=== PATIENT | male | born 1965 | race Caucasian/White ===

== ENCOUNTER 2017-03-13 21:08 | Inpatient (IN) ==
[2017-03-13 22:19] LABS: AGAP 11; ALBUMIN 4.8 g/dL (3.5-5.0); ALKALINE PHOSPHATASE 89 U/L (32-122); AMYLASE 81 U/L (20-200); BUN 14 mg/dL (8-22); CALCIUM 9.9 mg/dL (8.8-10.2); CHLORIDE 98 mmol/L (98-107); COSMO 275; GOT 14 U/L (10-34); GPT 17 U/L (10-44); LIPASE 54 U/L (13-60); POTASSIUM 4.6 mmol/L (3.5-5.1); SODIUM 136 mmol/L (136-145); TCO2 27 mmol/L (25-35); TOTAL PROTEIN 7.6 g/dL (6.3-8.3)
[2017-03-13 22:35] LABS: BASO% 0.1 % (0.0-0.8); HEMATOCRIT 45.5 % (42.0-52.0); HEMOGLOBIN 15.8 g/dL (14.0-18.0); IMM GRAN# 0.03 X1000 (0.0-0.04); IMM GRAN% 0.2 % (0.0-0.5); LYMPH# 1.06 X1000 (1.2-3.4); LYMPH% 7.8 % (20.5-51.1); MANUAL DIFF NEEDED? YES; MCH 30.4 PG (27-31); MCHC 34.7 g/dL (33-37); MCV 87.7 FL (81-99); MONO# 0.29 X1000 (0.11-0.59); MONO% 2.1 % (1.7-9.3); MPV 10.4 FL (7.4-10.4); NEUT% 89.8 % (42.2-75.2); PLT 289 X1000 (130-400); RBC 5.19 XMIL (4.7-6.1)
[2017-03-13 23:05] LABS: LYMPHS 5 % (21-51); MONO 4 % (1-9)
[2017-03-13] MEDS ORDERED: PEPCID IV ONE (23:11)
[2017-03-13] MEDS ORDERED: SODIUM CHLORIDE 0.9% INJ ONE (23:11)
[2017-03-13] MEDS ORDERED: NS 1,000 ML IV ONE (23:11)
[2017-03-13] MEDS ORDERED: ZOFRAN IV ONE ×2 (23:11→23:47)
[2017-03-13] MEDS ORDERED: MORPHINE IV ONE (23:11)
[2017-03-13 23:28] LABS: BILIRUBIN URINE NEGATIVE (NEGATIVE); BLOOD URINE 1+ (NEGATIVE); CLARITY CLEAR (CLEAR); COLOR YELLOW; GLUCOSE URINE NEGATIVE (NEGATIVE); LEUKOCYTES URINE NEGATIVE (NEGATIVE); NITRITE URINE NEGATIVE (NEGATIVE); PH URINE 6.5; PROTEIN URINE NEGATIVE (NEGATIVE); SP GRAVITY URINE 1.015; UROBILINOGEN URINE NORMAL
[2017-03-13 23:29] LABS: URINE RBC <10 /HPF (<10); URINE WBC <10 /HPF (<10)
[2017-03-13 23:30] LABS: URINE CULTURE PL NEEDED? YES; URINE EPITHELIAL CELLS <10 /HPF (<10); URINE SOURCE CLEAN CATCH
[2017-03-13] MEDS ORDERED: DILAUDID IV ONE (23:46)
[2017-03-13] MEDS ORDERED: DILAUDID ONE (23:47)
[2017-03-13] MEDS ORDERED: ZOFRAN ONE (23:47)
[2017-03-14] MEDS ORDERED: ZOSYN 4.5 GM in NS 100 ML IV ONE (00:37)
[2017-03-14] MEDS ORDERED: NS 1,000 ML IV ONE (00:38)
[2017-03-14] MEDS ORDERED: DILAUDID IV ONE (01:28)
[2017-03-14] MEDS ORDERED: ZOFRAN IV ONE (01:28)
[2017-03-14] MEDS ORDERED: HURRICAINE SPRAY (DOSE) ONE (01:41)
[2017-03-14] MEDS ORDERED: XYLOCAINE-MPF 2% ONE (01:57)
[2017-03-14] MEDS ORDERED: SODIUM CHLORIDE 0.9% 30 ML ONE (01:57)
[2017-03-14] MEDS ORDERED: QUELICIN (DOSE) ONE (01:57)
[2017-03-14] MEDS ORDERED: NORCURON ONE (01:57)
[2017-03-14] MEDS ORDERED: NEO-SYNEPHRINE ONE (01:57)
[2017-03-14] MEDS ORDERED: ROBINUL ONE ×2 (01:57→03:41)
[2017-03-14] MEDS ORDERED: FENTANYL ONE (02:06)
[2017-03-14] MEDS ORDERED: DIPRIVAN 1% ONE (02:06)
[2017-03-14] MEDS ORDERED: NEOSTIGMINE ONE (03:06)
[2017-03-14] MEDS ORDERED: ZOFRAN ONE (03:40)
[2017-03-14] MEDS ORDERED: DILAUDID ONE (03:43)
[2017-03-14] MEDS ORDERED: OFIRMEV 1000 MG/ISOTONIC SOLN 1,000 MG/100 ML BOTTLE ONE (03:49)
[2017-03-14 04:27] LABS: URINE MICRO REVIEW NEEDED? NO; URINE SOURCE CATH
[2017-03-14 04:32] LABS: BILIRUBIN URINE NEGATIVE (NEGATIVE); BLOOD URINE NEGATIVE (NEGATIVE); COLOR YELLOW; GLUCOSE URINE 500 mg/dL (NEGATIVE); LEUKOCYTES URINE NEGATIVE (NEGATIVE); NITRITE URINE NEGATIVE (NEGATIVE); PH URINE 6.5; PROTEIN URINE NEGATIVE (NEGATIVE); SP GRAVITY URINE 1.022; TURBIDITY URINE CLEAR (CLEAR); UR EPITHELIAL CELLS <10 /HPF (<10); URINE BACTERIA NEGATIVE /HPF; URINE RBC <10 /HPF (<10); URINE WBC <10 /HPF (<10); UROBILINOGEN URINE NORMAL (NORMAL)
[2017-03-14] MEDS ORDERED: MORPHINE PCA ONE (04:48)
[2017-03-14] MEDS ORDERED: LR 1,000 ML ONE (04:48)
[2017-03-14] MEDS ORDERED: ZOFRAN IV PRN (06:56)
--- NOTE | 2017-03-14 07:32 | Diag Imaging Result Doc PS360 ---
CT ABDOMEN/PELVIS W/O CONTRAST - 03/13/2017 INDICATION: RUQ pain TECHNIQUE: A CT dose reduction protocol was used. COMPARISON: None FINDINGS: There is moderate pneumoperitoneum. There is some wall thickening of the duodenal bulb with some surrounding inflammation. No drainable fluid collection. There is a tiny nonobstructing 1 mm right renal stone. No hydronephrosis or hydroureter. Normal appendix. There is diverticulosis of the colon. Urinary bladder, prostate, and rectum are normal. The lung bases are clear and the heart size is normal. There is some gas in the gluteus musculature of the right buttock consistent with an intramuscular injection. IMPRESSION: Pneumoperitoneum. Inflammation about the duodenal bulb. Concerning for perforated peptic ulcer disease. Electronically signed by Austyn Leone 03/14/2017 7:29 AM
--- NOTE | 2017-03-14 07:34 | Diag Imaging Result Doc PS360 ---
FLAT/UPRIGHT ABD/1 VIEW CHEST - 03/13/2017 INDICATION: abd pain TECHNIQUE: Three views COMPARISON: None FINDINGS: There is a tiny calcified granuloma in the right upper lobe. Otherwise the chest is clear. No bowel obstruction or free air is visible. However on the CT immediately following this, there was some trace pneumoperitoneum from perforated peptic ulcer disease. IMPRESSION: Trace pneumoperitoneum from peptic ulcer disease is not visible on this x-ray series. Easily visible on the following CT. Electronically signed by Austyn Leone 03/14/2017 7:31 AM
[2017-03-14] MEDS ORDERED: [UNRECOGNIZED DRUG - OTHER] IV ONE (08:00)
[2017-03-14] MEDS ORDERED: DIFLUCAN IV ONE (08:00)
[2017-03-14] MEDS ORDERED: PNEUMOVAX 23 IM ONE (08:06)
[2017-03-14] MEDS: ZOSYN 3.375 GM in NS 50 ML IV SCH ×3 (09:40→21:07)
[2017-03-14] MEDS: PERIDEX MT SCH ×2 (09:40→21:07)
[2017-03-14] MEDS: SODIUM CHLORIDE 0.9% INJ SCH ×2 (09:41→21:07)
[2017-03-14] MEDS: PROTONIX IV SCH ×2 (09:41→21:07)
[2017-03-14] MEDS: DIFLUCAN 400 MG/NS 400 MG/200 ML IVPB IV SCH ×2 (11:49→14:12)
[2017-03-14 12:28] LABS: AGAP 13; ALBUMIN 3.5 g/dL (3.5-5.0); ALKALINE PHOSPHATASE 56 U/L (32-122); BASO% 0.1 % (0.0-0.8); BUN 11 mg/dL (8-22); CALCIUM 8.5 mg/dL (8.8-10.2); CHLORIDE 101 mmol/L (98-107); COSMO 281; GOT 18 U/L (10-34); GPT 20 U/L (10-44); HEMOGLOBIN 13.9 g/dL (14.0-18.0); IMM GRAN# 0.03 X1000 (0.0-0.04); IMM GRAN% 0.2 % (0.0-0.5); LYMPH# 0.97 X1000 (1.2-3.4); LYMPH% 5.2 % (20.5-51.1); MAGNESIUM 1.5 mg/dL (1.5-2.7); MANUAL DIFF NEEDED? YES; MCH 30.8 PG (27-31); MCHC 34.8 g/dL (33-37); MCV 88.5 FL (81-99); MONO# 1.48 X1000 (0.11-0.59); MONO% 7.9 % (1.7-9.3); MPV 10.2 FL (7.4-10.4); NEUT% 86.6 % (42.2-75.2); PLT 251 X1000 (130-400); POTASSIUM 4.8 mmol/L (3.5-5.1); RBC 4.52 XMIL (4.7-6.1); SODIUM 140 mmol/L (136-145); TCO2 26 mmol/L (25-35); TOTAL BILIRUBIN 1.28 mg/dL (0.20-1.00); TOTAL PROTEIN 5.8 g/dL (6.3-8.3)
[2017-03-14 12:38] LABS: BANDS 10 % (0-1); LYMPHS 10 % (21-51); MONO 4 % (1-9)
[2017-03-14] MEDS ORDERED: VANCOMYCIN IV PER PHARMACY MISC SCH (13:45)
[2017-03-14] MEDS ORDERED: MAGNESIUM SULFATE 2 GM/S.W.I. 2 GM/50 ML IVPB IV ONE (14:00)
[2017-03-14] MEDS: NICODERM PATCH TD SCH (14:13)
[2017-03-14] MEDS ORDERED: VANCOMYCIN 2 GM in NS 500 ML IV ONE (15:00)
[2017-03-14] MEDS: DUONEB (A & A) INH SCH ×3 (15:30→23:53)
[2017-03-14] MEDS: HEPARIN SUBQ SCH (21:07)
[2017-03-14] MEDS: MORPHINE PCA IV PRN (21:22)
[2017-03-14] MEDS: LR 1,000 ML IV SCH (21:22)
[2017-03-15] MEDS: VANCOMYCIN 1.5 GM in NS 250 ML IV SCH ×3 (02:26→14:05)
[2017-03-15] MEDS: DUONEB (A & A) INH SCH ×6 (03:10→23:00)
[2017-03-15] MEDS: HEPARIN SUBQ SCH ×3 (04:09→21:55)
[2017-03-15] MEDS: ZOSYN 3.375 GM in NS 50 ML IV SCH ×4 (04:09→20:58)
[2017-03-15 05:58] LABS: HEMATOCRIT 38.5 % (42.0-52.0); HEMOGLOBIN 13.2 g/dL (14.0-18.0); MCH 31.6 PG (27-31); MCHC 34.3 g/dL (33-37); MCV 92.1 FL (81-99); MPV 11.3 FL (7.4-10.4); RBC 4.18 XMIL (4.7-6.1)
[2017-03-15 06:25] LABS: AGAP 9; ALBUMIN 3.2 g/dL (3.5-5.0); ALKALINE PHOSPHATASE 51 U/L (32-122); BUN 14 mg/dL (8-22); CALCIUM 8.9 mg/dL (8.8-10.2); CHLORIDE 96 mmol/L (98-107); COSMO 273; GOT 17 U/L (10-34); GPT 16 U/L (10-44); POTASSIUM 4.6 mmol/L (3.5-5.1); SODIUM 135 mmol/L (136-145); TCO2 30 mmol/L (25-35); TOTAL BILIRUBIN 0.68 mg/dL (0.20-1.00); TOTAL PROTEIN 5.8 g/dL (6.3-8.3)
[2017-03-15 06:30] LABS: HEMOGLOBIN A1C 5.4 % (4.8-6.0)
[2017-03-15] MEDS: LR 1,000 ML IV SCH ×3 (07:50→16:27)
[2017-03-15] MEDS: DIFLUCAN 400 MG/NS 400 MG/200 ML IVPB IV SCH (08:00)
[2017-03-15] MEDS: NICODERM PATCH TD SCH (08:01)
[2017-03-15] MEDS: PROTONIX IV SCH ×2 (08:01→20:57)
[2017-03-15] MEDS: SODIUM CHLORIDE 0.9% INJ SCH ×2 (08:01→20:57)
[2017-03-15] MEDS: PERIDEX MT SCH ×2 (08:01→20:57)
--- NOTE | 2017-03-15 09:49 | Diag Imaging Result Doc PS360 ---
FLAT/UPRIGHT ABD/1 VIEW CHEST - 03/15/2017 INDICATION: post surgery TECHNIQUE: Three views COMPARISON: 03/13/2017 FINDINGS: There is a nasogastric tube in good position in the distal stomach. Lung volumes are much lower. There are trace pleural effusions. No significant infiltrates in the lung bases. Heart size is normal. There is a surgical drain in the epigastrium. There are laparotomy skin kirk. There is very little bowel gas overall. No bowel obstruction or free air. IMPRESSION: No significant acute disease or complication. Electronically signed by Austyn Leone 03/15/2017 9:46 AM
[2017-03-15] MEDS: MORPHINE PCA IV PRN (17:11)
[2017-03-16] MEDS: ZOSYN 3.375 GM in NS 50 ML IV SCH ×5 (00:14→21:25)
[2017-03-16] MEDS: DUONEB (A & A) INH SCH ×6 (03:15→23:10)
[2017-03-16] MEDS: LR 1,000 ML IV SCH ×4 (04:17→21:25)
[2017-03-16] MEDS: VANCOMYCIN 1.5 GM in NS 250 ML IV SCH (04:18)
[2017-03-16] MEDS: HEPARIN SUBQ SCH ×3 (05:01→21:26)
[2017-03-16 06:19] LABS: HEMATOCRIT 36.9 % (42.0-52.0); HEMOGLOBIN 12.7 g/dL (14.0-18.0); MCH 31.4 PG (27-31); MCHC 34.4 g/dL (33-37); MCV 91.1 FL (81-99); MPV 10.9 FL (7.4-10.4); RBC 4.05 XMIL (4.7-6.1)
[2017-03-16 06:48] LABS: AGAP 12; ALBUMIN 3.1 g/dL (3.5-5.0); ALKALINE PHOSPHATASE 48 U/L (32-122); BUN 13 mg/dL (8-22); CHLORIDE 100 mmol/L (98-107); COSMO 277; GOT 15 U/L (10-34); GPT 13 U/L (10-44); POTASSIUM 3.9 mmol/L (3.5-5.1); SODIUM 139 mmol/L (136-145); TCO2 27 mmol/L (25-35); TOTAL BILIRUBIN 0.64 mg/dL (0.20-1.00); TOTAL PROTEIN 4.9 g/dL (6.3-8.3)
[2017-03-16] MEDS: SODIUM CHLORIDE 0.9% INJ SCH ×2 (08:46→21:25)
[2017-03-16] MEDS: DIFLUCAN 400 MG/NS 400 MG/200 ML IVPB IV SCH (08:46)
[2017-03-16] MEDS: PERIDEX MT SCH ×2 (08:46→21:25)
[2017-03-16] MEDS: NICODERM PATCH TD SCH (08:46)
[2017-03-16] MEDS: PROTONIX IV SCH ×2 (08:46→21:25)
[2017-03-16] MEDS: VANCOMYCIN IV SCH (17:11)
[2017-03-16] MEDS: NS IV SCH (17:11)
[2017-03-16] MEDS ORDERED: AYR NASAL SPRAY NAS PRN (21:34)
[2017-03-17] MEDS: DUONEB (A & A) INH SCH ×6 (03:10→23:27)
[2017-03-17] MEDS: NS IV SCH ×2 (03:28→19:49)
[2017-03-17] MEDS: LR 1,000 ML IV SCH ×2 (03:28→22:39)
[2017-03-17] MEDS: VANCOMYCIN IV SCH ×2 (03:28→19:49)
[2017-03-17] MEDS: ZOSYN 3.375 GM in NS 50 ML IV SCH ×4 (05:57→22:36)
[2017-03-17 06:05] LABS: HEMATOCRIT 36.3 % (42.0-52.0); HEMOGLOBIN 12.7 g/dL (14.0-18.0); MCH 31.4 PG (27-31); MCV 89.6 FL (81-99); MPV 10.5 FL (7.4-10.4); RBC 4.05 XMIL (4.7-6.1)
[2017-03-17 06:36] LABS: AGAP 17; ALKALINE PHOSPHATASE 55 U/L (32-122); BUN 13 mg/dL (8-22); CALCIUM 8.7 mg/dL (8.8-10.2); CHLORIDE 99 mmol/L (98-107); COSMO 279; GOT 16 U/L (10-34); GPT 16 U/L (10-44); POTASSIUM 3.9 mmol/L (3.5-5.1); SODIUM 140 mmol/L (136-145); TCO2 24 mmol/L (25-35); TOTAL PROTEIN 6.1 g/dL (6.3-8.3)
[2017-03-17] MEDS: HEPARIN SUBQ SCH ×3 (06:43→22:36)
[2017-03-17] MEDS: PROTONIX IV SCH ×2 (08:32→22:36)
[2017-03-17] MEDS: DIFLUCAN 400 MG/NS 400 MG/200 ML IVPB IV SCH (08:32)
[2017-03-17] MEDS: SODIUM CHLORIDE 0.9% INJ SCH ×2 (08:32→22:36)
[2017-03-17] MEDS: NICODERM PATCH TD SCH (08:33)
[2017-03-17] MEDS: PERIDEX MT SCH ×2 (08:33→22:36)
[2017-03-18] MEDS: DUONEB (A & A) INH SCH ×6 (03:30→22:30)
[2017-03-18] MEDS: HEPARIN SUBQ SCH ×3 (04:29→21:09)
[2017-03-18] MEDS: ZOSYN 3.375 GM in NS 50 ML IV SCH (04:30)
[2017-03-18] MEDS: LR 1,000 ML IV SCH ×3 (04:38→17:59)
[2017-03-18] MEDS ORDERED: ULTRAM PO PRN (05:41)
[2017-03-18 06:09] LABS: HEMATOCRIT 37.3 % (42.0-52.0); HEMOGLOBIN 12.9 g/dL (14.0-18.0); MCHC 34.6 g/dL (33-37); MCV 89.7 FL (81-99); MPV 10.3 FL (7.4-10.4); RBC 4.16 XMIL (4.7-6.1)
[2017-03-18 06:29] LABS: AGAP 16; BUN 13 mg/dL (8-22); CALCIUM 8.6 mg/dL (8.8-10.2); CHLORIDE 99 mmol/L (98-107); COSMO 272; POTASSIUM 3.9 mmol/L (3.5-5.1); SODIUM 136 mmol/L (136-145); TCO2 21 mmol/L (25-35)
[2017-03-18] MEDS: NICODERM PATCH TD SCH (09:18)
[2017-03-18] MEDS: AUGMENTIN PO SCH ×2 (09:19→21:09)
[2017-03-18] MEDS: PROTONIX PO SCH ×2 (09:19→21:09)
[2017-03-18] MEDS: PERIDEX MT SCH ×2 (09:19→21:09)
[2017-03-18] MEDS: DIFLUCAN 400 MG/NS 400 MG/200 ML IVPB IV SCH (09:19)
[2017-03-18] MEDS ORDERED: MAALOX PLUS LIQUID PO ONE (19:39)
[2017-03-18] MEDS ORDERED: MAALOX PLUS LIQUID PO PRN (19:39)
[2017-03-19] MEDS: LR 1,000 ML IV SCH ×2 (01:32→04:31)
[2017-03-19] MEDS: DUONEB (A & A) INH SCH ×2 (03:10→08:30)
[2017-03-19] MEDS: HEPARIN SUBQ SCH (04:31)
[2017-03-19 07:34] VITALS: BP 155/93
[2017-03-19] MEDS: NICODERM PATCH TD SCH (07:37)
== END 2017-03-19 08:29 | disposition home or self-care (01) ==
LOC: P.ED 21:08 → 4N 03-14 01:46
PROVIDERS: ADMIT Internal Medicine; ATTEND Surgery